=== PATIENT | female | born 1995 | race Caucasian/White ===

== ENCOUNTER 2023-03-24 06:02 | Day surgery (SDC) | payer OTHER, MEDICAID, SELFPAY ==
[2023-03-24] VITALS (15 sets, daily range): BP systolic 98–134; BP diastolic 52–95; PULSE 56–74; RESP 12–16; TEMP 35.8–36.6; O2SAT 94–100; BMI 38.8
[2023-03-24 06:40] LABS: Ur HCG Qualitative* Negative (Negative)
[2023-03-24] MEDS: SODIUM CHLORIDE 0.9 % (FLUSH) 10 ML SYRINGE IVF (07:15)
[2023-03-24] MEDS: LACTATED RINGERS 1000 ML 1,000 ML 100 ML IV ×2 (07:15→07:43)
[2023-03-24] MEDS: CEFAZOLIN 2 GM INJ IVP (07:36)
--- NOTE | 2023-03-24 07:48 | W.ANESCHARGE ---
Anesthesia Charges Start Date/Time Anesthesia Start Date: 03/24/23 Anesthesia Start Time: 07:32 Stop Date/Time Anesthesia Stop Date: 03/24/23 Anesthesia Stop Time: 08:46
[2023-03-24] MEDS: BUPIVACAINE 0.5% 30 ML INJECTION (07:55)
--- NOTE | 2023-03-24 08:42 | PM.GSPRC ---
Operative Note Pre-op diagnosis: Biliary colic Post-op diagnosis: Same Type of Procedure: Laparoscopic cholecystectomy Indications: Patient is a 27-year-old female clinical workup and history consistent with biliary colic. Risks and benefits of operative intervention were discussed at length with the patient. Risks included but was not limited to: Bleeding, infection, risk of damage to surrounding structures, possible need for additional procedures, possible need to convert to an open operation and postoperative complications such as pneumonia, pulmonary emboli or VA. All questions and concerns were addressed with the patient agreeing to proceed. Procedure Description: After discussing the risks and benefits of the procedure, the patient signed informed consent.? The operative site was marked and the patient was brought to the operating room and placed on the operating table in supine position.? Care was taken to pad the patient's pressure points.?? The patient was then intubated by anesthesia.?? The operative site was then prepped and draped in the usual sterile fashion.? A time-out was then performed. Entrance to the abdomen was gained via a 5 mm Visiport in the left upper quadrant. The abdomen was insufflated and briefly surveyed for signs of injury. There was none. 11 mm umbilical port was placed as well as 2 working ports along the right costal margin. Patient was then placed in reverse Trendelenburg position with the right side up. The gallbladder fundus was grasped and retracted cephalad. The infundibulum was grasped. A combination of hook cautery and blunt dissection was used to carefully dissect out the cystic duct and artery until they could clearly be seen entering the gallbladder without any intervening structures. The gallbladder was dissected off the cystic plate to achieve the critical view. The cystic artery was intertwined with the cystic duct. 2 clips were applied proximally on the cystic duct and artery and 1 clip distally and transected with the scissors. The gallbladder was then taken off of the liver bed. And removed from the abdomen using an Endo-Catch bag. The gallbladder bed was surveyed for hemostasis. A small amount of bile which had spilled was suctioned from the abdomen. The ports were then removed under direct vision. The umbilical port fascia was closed with 0 Vicryl. The skin was closed with absorbable subcuticular suture. Instrument sponge and needle counts were correct at the end of the case. The patient was then woken and transferred to the PACU in stable condition. Findings: Distended gallbladder full of stones. Anesthesia: GETA Surgeon: Ansley Mcintosh MD Estimated blood loss (mL): 2 Specimen: Gallbladder Condition: stable Disposition: PACU Date of procedure: 03/24/23
[2023-03-24] MEDS: fentaNYL 100 MCG/2 ML inj 50 MCG IVP ×2 (08:59→09:18)
[2023-03-24] MEDS: KETOROLAC 15 MG/ML inj IVP (10:11)
[2023-03-24] MEDS: ACETAMINOPHEN 325 MG TABLET 650 MG PO (10:11)
--- NOTE | 2023-03-24 10:44 | W.ANESCHARGE ---
Anesthesia Charges Start Date/Time Anesthesia Start Date: 03/24/23 Anesthesia Start Time: 07:32 Stop Date/Time Anesthesia Stop Date: 03/24/23 Anesthesia Stop Time: 08:46
== END 2023-03-24 11:39 | disposition home or self-care (01) ==
PROVIDERS: Visit Provider Surgery
PROC: 0FT44ZZ Resection of Gallbladder, Percutaneous Endoscopic Approach (ICD-10-PCS; CPT 47562; principal; 2023-03-24 07:30)
DX: K80.20 Calculus of gallbladder without cholecystitis without obstruction (principal)
CPT/HCPCS: 47562; 00790; 81025; 88304; 99283; A9270; J0330; J0665; J0690; J1100; J1885; J2250; J2405; J2704; J3010; J3490; J7120

== ENCOUNTER 2023-03-24 19:47 | Emergency (ER) | payer OTHER, MEDICAID, SELFPAY ==
[2023-03-24 20:00] VITALS: BP 109/74; PULSE 63; RESP 16; TEMP 36.6; O2SAT 97; BMI 38.7
--- NOTE | 2023-03-25 01:44 | ED.GENADULT ---
HPI - General Adult General Date Seen: 03/25/23 Chief complaint: Sore Throat Stated complaint: Throat pain and swelling Time Seen by Provider: 03/24/23 19:47 Source: patient Mode of arrival: ambulatory Limitations: no limitations History of Present Illness HPI narrative: Patient is a 27-year-old who had a lap choly earlier today. She has been dealing with a sore throat and feels like her throat is a little swollen since the surgery. Voice is kind of raspy. She is able to swallow and breathe. She has not had a fever. A little bit of a cough which seems related to some phlegm in her throat. She was told to come in to rule out possible allergy. Related Data Home Medications Medication Instructions Recorded Confirmed albuterol sulfate 90 mcg/actuation 2 inh inhalation Q8H PRN 03/22/23 03/24/23 aerosol inhaler (Ventolin HFA) hydroxyzine HCl 25 mg tablet 25 mg PO BID PRN 03/22/23 03/24/23 ipratropium 0.5 mg-albuterol 3 mg 3 ml inhalation Q6-8H PRN 03/22/23 03/24/23 (2.5 mg base)/3 mL nebulization soln sertraline 50 mg tablet 50 mg PO DAILY 03/22/23 03/24/23 Tylenol 03/24/23 ibuprofen 03/24/23 valacyclovir 500 mg tablet 500 mg PO DAILY 03/24/23 03/24/23 Previous Rx's Medication Instructions Recorded oxycodone 5 mg tablet 5 mg PO Q6H PRN pain #15 tabs 03/24/23 sennosides 8.6 mg capsule (senna) 8.6 mg PO DAILY PRN constipation 03/24/23 #90 caps Allergies Allergy/AdvReac Type Severity Reaction Status Date / Time shellfish derived Allergy Severe Anaphylaxis Verified 03/24/23 20:03 amoxicillin Allergy Rash Verified 03/24/23 20:03 aspartame Allergy Anaphylaxis Verified 03/24/23 20:03 metoclopramide [From Reglan] Allergy tachycardia Verified 03/24/23 20:03 peanut Allergy Anaphylaxis Verified 03/24/23 20:03 ranitidine Allergy Anaphylaxis Verified 03/24/23 20:03 tramadol Allergy itching Verified 03/24/23 20:03 morphine AdvReac Nausea Verified 03/24/23 20:03 PFSH PFSH Medical History (Updated 03/22/23 @ 12:39 by Penny Hartley RN) PTSD (post-traumatic stress disorder) ?F43.10 - Post-traumatic stress disorder, unspecified (ICD-10) Bipolar affect, depressed ?F31.30 - Bipolar disorder, current episode depressed, mild or moderate severity, unspecified (ICD-10) Asthma ?J45.909 - Unspecified asthma, uncomplicated (ICD-10) Anxiety ?F41.9 - Anxiety disorder, unspecified (ICD-10) Social History Smoking Status: Never smoker How often do you have a drink containing alcohol: never AUDIT-C Alcohol total score: 0 Non-prescribed substance use: denies use Caffeine: Yes (2-3 c/day) Exam Narrative: Exam Narrative: Patient left prior to exam, voice was normal. Const: Vital Signs, click to edit/add: Vital Signs - 24 hr 03/24/23 20:00 Temperature 97.8 F Pulse Rate [Left P ulse Oximeter] 63 Respiratory Rate 16 Blood Pressure [Ri ght Upper Arm] 109/74 Pulse Oximetry 97 Oxygen Delivery Me thod Room Air Course Course ED Course: I did talk with patient, had offered to do a COVID test and was beginning my exam when I got called out for a phone call from a physician who was returning a page. When I went back in to examine her she had left, apparently upset with me that I it left to take phone call. I suspect that symptoms are related to the ET tube. There was nothing to suggest an allergic reaction. She did not show any signs of respiratory difficulty, nurse had examined her throat and said that there was no edema. She was in the emergency department for a couple of hours due to very long wait times and showed no evidence of deterioration. Vital signs were normal. Vital Signs Vital signs: Initial Vital Signs Temperature 97.8 F 03/24/23 20:00 Temperature Source Temporal Artery Scan 03/24/23 20:00 Pulse Rate 63 03/24/23 20:00 Respiratory Rate 16 03/24/23 20:00 Blood Pressure 109/74 03/24/23 20:00 Blood Pressure Mean 85 03/24/23 20:00 Blood Pressure Position Sitting 03/24/23 20:00 Pulse Oximetry 97 03/24/23 20:00 Oxygen Delivery Method Room Air 03/24/23 20:00 Vital Signs Temperature 97.8 F 03/24/23 20:00 Pulse Rate 63 03/24/23 20:00 Respiratory Rate 16 03/24/23 20:00 Blood Pressure 109/74 03/24/23 20:00 Pulse Oximetry 97 03/24/23 20:00 Oxygen Delivery Method Room Air 03/24/23 20:00 Temperature 97.8 F 03/24/23 20:00 Pulse Rate 63 03/24/23 20:00 Respiratory Rate 16 03/24/23 20:00 Blood Pressure 109/74 03/24/23 20:00 Pulse Oximetry 97 03/24/23 20:00 Oxygen Delivery Method Room Air 03/24/23 20:00 Discharge Plan Discharge Prescriptions: No Action ipratropium-albuterol 0.5 mg-3 mg(2.5 mg base)/3 mL solution for nebulization 3 ml inhalation Q6-8H PRN hydroxyzine HCl 25 mg tablet 25 mg PO BID PRN sertraline 50 mg tablet 50 mg PO DAILY albuterol sulfate [Ventolin HFA] 90 mcg/actuation HFA aerosol inhaler 2 inh inhalation Q8H PRN oxycodone 5 mg tablet 5 mg PO Q6H PRN (Reason: pain) Qty: 15 0RF senna 8.6 mg capsule 8.6 mg PO DAILY PRN (Reason: constipation) Qty: 90 0RF valacyclovir 500 mg tablet 500 mg PO DAILY ibuprofen Tylenol Follow Up/Referrals: Provider,Not a Local [Primary Care Provider] -
== END 2023-03-24 22:02 | disposition home or self-care (01) ==
LOC: ED 21:54
PROVIDERS: Emergency Provider Emergency Medicine
DX: Z53.29 Procedure and treatment not carried out because of patient's decision for other reasons (principal)
CPT/HCPCS: 99283